=== PATIENT | male | born 1985 | race African-American/Black ===

== ENCOUNTER 2022-02-20 10:48 | Emergency (ER) | payer BC, SELFPAY ==
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
[2022-02-20 10:50] VITALS: BP 132/84; PULSE 86; RESP 18; TEMP 36.7; O2SAT 99
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
[2022-02-20 12:29] LABS: Appearance Urine Clear (Clear); Bilirubin Urine Negative (Negative); Blood Urine 2+ (Negative); Color Urine Yellow (Yellow); Glucose Urine UA Negative (Negative); Ketones Urine Negative (Negative); Leukocyte Esterase Ur Negative LEU/UL (Negative); Nitrate Urine Negative (Negative); Protein Urine Negative (Negative); Specific Grav Ur >= 1.030 (1.001-1.035); Urobilinogen Urine 0.2 mg/dL (<2.0); pH Urine 5.5 (5.0-9.0)
[2022-02-20 12:32] LABS: Bacteria Urine Trace /hpf; Mucus Urine Rare /lpf; WBC Urine 0-3 /hpf
[2022-02-20 12:35] LABS: Add Urine Microscopic? YES
[2022-02-20 14:03] VITALS: BP 121/78; PULSE 75; RESP 17; O2SAT 99
== END 2022-02-20 14:04 | disposition home or self-care (01) ==
PROVIDERS: Emergency Provider Emergency Medicine
DX: R36.1 Hematospermia (principal); R31.29 Other microscopic hematuria; N50.811 Right testicular pain
CPT/HCPCS: 76870; 81001; 93976; 99284